=== PATIENT | male | born 1955 | race Caucasian/White ===

== ENCOUNTER 2023-05-15 06:27 | Observation (INO) ==
[~2023-05-15 06:27] MED LIST: Buffered Lidocaine 1% SYRIN 1 ml INTRADERM ONE; Famotidine IV 10 MG/ML 2 ml VIAL (20 mg) IV ONE; Lactated Ringers 1000 ml BAG 1,000 ML IV SCH
[2023-05-15] MEDS ORDERED: ceFAZolin 2 GM PREMIX 2 GM/50 ML BAG ONE (06:57)
[2023-05-15] MEDS ORDERED: Tranexamic Acid 1 GM/100ML BAG 2,000 MG/200 ML BAG IV ONE (06:57)
[2023-05-15] MEDS ORDERED: Famotidine IV 10 MG/ML 2 ml VIAL (20 mg) ONE (06:57)
[2023-05-15 07:06] LABS: Rapid COVID-19 Molecular Undetected (Undetected)
[2023-05-15] MEDS ORDERED: fentaNYL 100 mcg/2 ml 50 MCG/ML VIAL ONE ×2 (07:18→07:53)
[2023-05-15] MEDS ORDERED: Midazolam 5 mg/5 ml VIAL 1 mg/ml 5 ml VIAL (5 mg) ONE (07:18)
[2023-05-15] MEDS ORDERED: ROPIVACAINE 5 MG/ML 30 ML BTL (0.5%) ONE ×2 (07:18→08:35)
[2023-05-15] MEDS ORDERED: Phenylephrine IV 10 MG/ML 1 ml VIAL ONE (07:52)
[2023-05-15] MEDS ORDERED: Glycopyrrolate IV 0.2 MG/ML 1 ML VIAL ONE (07:52)
[2023-05-15] MEDS ORDERED: Lidocaine 2% PF 5 ML VIAL ONE (07:52)
[2023-05-15] MEDS ORDERED: Midazolam 2 mg/2 ml VIAL 1 mg/ml 2 ml VIAL (2 mg) ONE (07:53)
[2023-05-15] MEDS ORDERED: Ondansetron 4 mg VIAL 2 MG/ML 2 ml VIAL ONE (08:14)
[2023-05-15] MEDS ORDERED: Propofol 10 MG/ML 20 ML BTL ONE ×2 (10:36→11:09)
[2023-05-15] MEDS ORDERED: Dexamethasone IV 4 MG/ML VIAL 1 ml VIAL ONE (10:36)
[2023-05-15] MEDS ORDERED: HYDROmorphone 1 MG/1 ML SYRINGE IV PRN (11:03)
[2023-05-15] MEDS ORDERED: fentaNYL 100 mcg/2 ml 50 MCG/ML VIAL IV PRN (11:03)
[2023-05-15] MEDS ORDERED: Naloxone 0.4 mg VIAL 0.4 mg/ml 1 ml VIAL IV PRN (11:03)
[2023-05-15] MEDS ORDERED: Ondansetron 4 mg VIAL 2 MG/ML 2 ml VIAL IV PRN (12:15)
[2023-05-15] MEDS ORDERED: Lactulose 30 ml UDC PO PRN (12:15)
[2023-05-15] MEDS ORDERED: Morphine 2 MG/ML SYRINGE IV PRN (12:15)
[2023-05-15] MEDS ORDERED: Magnesium Hydroxide LIQ 30 ML UDC PO PRN (12:15)
[2023-05-15] MEDS ORDERED: Ondansetron ODT 4 mg TAB 4 MG TAB PO PRN (12:15)
[2023-05-15] MEDS: Lactated Ringers 1000 ml BAG 1,000 ML IV SCH (13:53)
[2023-05-15] MEDS: ceFAZolin 1 GM ADVAN 1 GM in NS 0.9% 50 ML 50 ML IVPB SCH (17:44)
[2023-05-15] MEDS: Magnesium Hydroxide LIQ 30 ML UDC PO SCH (21:33)
[2023-05-16] MEDS: Lactated Ringers 1000 ml BAG 1,000 ML IV SCH (00:02)
[2023-05-16] MEDS: ceFAZolin 1 GM ADVAN 1 GM in NS 0.9% 50 ML 50 ML IVPB SCH ×2 (02:34→09:20)
[2023-05-16 06:44] LABS: Hemoglobin 13.5 g/dL (13.2-16.3); Mean Platelet Volume 9.1 fL (7.5-11.2); Platelet Count 242 10^3/uL (150-450)
[2023-05-16 06:59] LABS: Calcium 8.9 mg/dL (8.6-10.3); Creatinine, Serum 0.99 mg/dL (0.67-1.17)
[2023-05-16] MEDS ORDERED: Vitamin THERAPEUTIC TAB PO SCH (09:00)
[2023-05-16] MEDS: Magnesium Hydroxide LIQ 30 ML UDC PO SCH (09:23)
[2023-05-16 10:10] VITALS: BP 121/70
== END 2023-05-16 12:55 | disposition home or self-care (01) ==
LOC: SSU 06:27 → OR 06:27
PROVIDERS: ADMIT Orthopaedic Surgery Adult Reconstructive Orthopaedic Surgery; ATTEND Orthopaedic Surgery Adult Reconstructive Orthopaedic Surgery

== ENCOUNTER 2024-01-27 06:38 | Observation (INO) ==
[~2024-01-27 06:38] MED LIST changes: -Buffered Lidocaine 1% SYRIN 1 ml INTRADERM ONE; -Famotidine IV 10 MG/ML 2 ml VIAL (20 mg) IV ONE; -Lactated Ringers 1000 ml BAG 1,000 ML IV SCH; +ROPIVACAINE 5 MG/ML 30 ML BTL (0.5%) ONE
[2024-01-27] MEDS ORDERED: Phenylephrine IV 10 MG/ML 1 ml VIAL ONE (06:58)
[2024-01-27] MEDS ORDERED: Propofol 10 MG/ML 20 ML BTL ONE ×3 (06:58→11:02)
[2024-01-27] MEDS ORDERED: Lidocaine 2% PF 5 ML VIAL ONE (06:58)
[2024-01-27] MEDS ORDERED: KETAMINE HCL 10 MG/ML 20 ml VIAL (200 MG) ONE (07:07)
[2024-01-27 07:18] LABS: Rapid COVID-19 Molecular Undetected (Undetected)
[2024-01-27] MEDS ORDERED: Tranexamic Acid 1 GM/100ML BAG 2,000 MG/200 ML BAG IV ONE (07:41)
[2024-01-27] MEDS ORDERED: Dexamethasone IV 4 MG/ML VIAL 1 ml VIAL ONE (07:41)
[2024-01-27] MEDS ORDERED: ceFAZolin 2 GM PREMIX 2 GM/50 ML BAG ONE (07:41)
[2024-01-27] MEDS ORDERED: Famotidine IV 10 MG/ML 2 ml VIAL (20 mg) ONE (07:41)
[2024-01-27] MEDS: Dexamethasone IV 4 MG/ML VIAL 1 ml VIAL IV SLOW PU ONE (07:48)
[2024-01-27] MEDS: Famotidine IV 10 MG/ML 2 ml VIAL (20 mg) IV ONE (07:48)
[2024-01-27] MEDS ORDERED: Naloxone 0.4 mg VIAL 0.4 mg/ml 1 ml VIAL IV PRN (07:57)
[2024-01-27] MEDS ORDERED: Morphine 4 MG/ML VIAL (1 ml) IV PRN (07:57)
[2024-01-27] MEDS ORDERED: fentaNYL 100 mcg/2 ml 50 MCG/ML VIAL IV PRN (07:57)
[2024-01-27] MEDS ORDERED: Midazolam 2 mg/2 ml VIAL 1 mg/ml 2 ml VIAL (2 mg) ONE ×2 (08:21→08:53)
[2024-01-27] MEDS ORDERED: fentaNYL 100 mcg/2 ml 50 MCG/ML VIAL ONE (08:21)
[2024-01-27] MEDS ORDERED: ROPIVACAINE 5 MG/ML 30 ML BTL (0.5%) ONE (08:22)
[2024-01-27] MEDS ORDERED: Morphine 2 MG/ML SYRINGE IV PRN (10:09)
[2024-01-27] MEDS ORDERED: Calcium Carb (TUMS) 500 mg CHEW TAB PO PRN (10:09)
[2024-01-27] MEDS ORDERED: Magnesium Hydroxide LIQ 30 ML UDC PO PRN (10:09)
[2024-01-27] MEDS ORDERED: Lactulose 30 ml UDC PO PRN (10:09)
[2024-01-27] MEDS ORDERED: Ondansetron ODT 4 mg TAB 4 MG TAB PO PRN (10:09)
[2024-01-27] MEDS ORDERED: Ondansetron 4 mg VIAL 2 MG/ML 2 ml VIAL IV PRN (10:09)
[2024-01-27] MEDS ORDERED: Ondansetron 4 mg VIAL 2 MG/ML 2 ml VIAL ONE (10:52)
[2024-01-27] MEDS: Lactated Ringers 1000 ml BAG 1,000 ML IV SCH ×2 (14:09→14:26)
[2024-01-27] MEDS: Buffered Lidocaine 1% SYRIN 1 ml INTRADERM ONE (14:26)
[2024-01-27] MEDS: ceFAZolin 2 GM PREMIX 2 GM/50 ML BAG IV SCH (17:16)
[2024-01-27] MEDS: Magnesium Hydroxide LIQ 30 ML UDC PO SCH (21:49)
[2024-01-28 06:05] LABS: Hematocrit 37.5 % (38-53); Mean Platelet Volume 8.2 fL (7.5-11.2); Platelet Count 259 10^3/uL (150-450)
[2024-01-28 06:23] LABS: Calcium 8.2 mg/dL (8.6-10.3); Creatinine, Serum 1.1 mg/dL (0.67-1.17); Potassium 4.3 mmol/L (3.5-5.0); eGFR CKD-EPI 72.2 (>60)
[2024-01-28] MEDS: Vitamin THERAPEUTIC TAB PO SCH (08:52)
[2024-01-28 09:40] VITALS: BP 123/75
== END 2024-01-28 12:42 | disposition home or self-care (01) ==
LOC: SSU 06:38 → OR 06:38
PROVIDERS: ADMIT Orthopaedic Surgery Adult Reconstructive Orthopaedic Surgery; ATTEND Orthopaedic Surgery Adult Reconstructive Orthopaedic Surgery